=== PATIENT | female | born 1935 | race Caucasian/White ===

== ENCOUNTER 2024-07-17 22:02 | Inpatient (IN) | payer MEDICARE, BC ==
[~2024-07-17] VITALS: Ht 157.5 cm; Wt 64.0 kg
[2024-07-17 22:30] VITALS: BP 142/72; TEMP 97.7; O2SAT 95
[2024-07-17] MEDS ORDERED: MELA5TAB20 PO (23:29)
[2024-07-17] MEDS ORDERED: HALO2TAB PO (23:29)
[2024-07-17] MEDS ORDERED: METO-356 PO (23:29)
[2024-07-17] MEDS ORDERED: SERT25TA PO (23:29)
[2024-07-17] MEDS ORDERED: LEVO50TA8 PO (23:29)
[2024-07-17] MEDS ORDERED: GABA300S PO (23:29)
[2024-07-17] MEDS ORDERED: QUET25TA PO (23:29)
[2024-07-17] MEDS ORDERED: HALO2TAB9 PO (23:29)
[2024-07-17] MEDS ORDERED: GABA300C PO ×2 (23:29)
[2024-07-17] MEDS ORDERED: MAGN200T5 PO (23:29)
[2024-07-17] MEDS ORDERED: AMLO10TA59 PO (23:29)
[2024-07-17] MEDS ORDERED: TRAZ-182 PO (23:29)
[2024-07-17] MEDS ORDERED: MIRT-121 PO (23:29)
[2024-07-17] MEDS ORDERED: LORAZEPAM 1 MG TABLET PO PRN ×2 (23:30)
[2024-07-17] MEDS ORDERED: ACETAMINOPHEN 325 MG TABLET PO PRN (23:30)
[2024-07-17] MEDS ORDERED: MAGNESIUM HYDROXIDE 30 ML LIQUID UDC PO PRN (23:30)
[2024-07-17] MEDS ORDERED: MAG HYDROX/AL HYDROX/SIMETH 30 ML LIQUID UDC PO PRN (23:30)
[2024-07-17] MEDS: BLOOD SUGAR DIAGNOSTIC 1 EACH STRIP VI ONE (23:30)
[2024-07-18] MEDS: ZOLPIDEM 5 MG TABLET PO PRN (01:33)
[2024-07-18 08:44] VITALS: BP 135/55; TEMP 98; O2SAT 94
[2024-07-18] MEDS ORDERED: ACET325T53 PO (08:47)
[2024-07-18] MEDS: SERTRALINE HCL 50 MG TABLET PO SCH (10:34)
[2024-07-18 15:51] VITALS: BP 155/59; TEMP 98; O2SAT 96
[2024-07-18] MEDS: METOPROLOL SUCCINATE XL 25 MG TAB.SR.24H PO SCH (18:16)
[2024-07-18] MEDS: GABAPENTIN 300 MG CAPSULE PO SCH (20:45)
[2024-07-18] MEDS: CLONAZEPAM 0.5 MG TABLET PO SCH (20:45)
[2024-07-18] MEDS: QUETIAPINE FUMARATE 25 MG TABLET PO SCH (20:45)
[2024-07-19] MEDS: HYDROXYZINE PAMOATE 25 MG CAPSULE PO PRN (06:29)
[2024-07-19] MEDS: LEVOTHYROXINE SODIUM 50 MCG TABLET PO SCH (06:29)
[2024-07-19 08:07] VITALS: BP 144/65; TEMP 98; O2SAT 94
[2024-07-19 08:20] LABS: BASOPHILS # (AUTO) 0.1 K/UL (0.0-0.2); BASOPHILS % (AUTO) 1.5 % (0.0-2.0); DIFFERENTIAL COMMENT 0; EOSINOPHILS # (AUTO) 0.4 K/uL (0.0-0.7); EOSINOPHILS % (AUTO) 4.8 % (0.0-7.0); HEMOGLOBIN 13.5 g/dL (10.9-14.3); LYMPHOCYTES # (AUTO) 1.5 K/uL (0.8-4.8); LYMPHOCYTES % (AUTO) 20.2 % (20.5-51.5); MEAN CORPUSCULAR HEMOGLOBIN 29.2 uug (24.7-32.8); MEAN CORPUSCULAR HGB CONC 34 g/dL (32.3-35.6); MEAN CORPUSCULAR VOLUME 86.6 fL (75.5-95.3); MONOCYTES # (AUTO) 0.5 K/uL (0.1-1.30); MONOCYTES % (AUTO) 6.1 % (0.0-11.0); NEUTROPHILS % (AUTO) 67.4 % (38.5-71.5); PLATELET COUNT (AUTO) 430 K/uL (179-408); RED BLOOD CELL COUNT(AUTO) 4.62 MIL/uL (3.63-4.92); RED CELL DISTRIBUTION WIDTH 18.1 % (12.3-17.7); WHITE BLOOD COUNT (AUTO) 7.5 K/uL (3.8-11.8)
[2024-07-19 08:36] LABS: THYROID STIMULATING HORMONE 5.939 mIU/mL (0.358-3.740)
[2024-07-19] MEDS: GABAPENTIN 300 MG CAPSULE PO SCH (08:48)
[2024-07-19] MEDS: AMLODIPINE 10 MG TABLET PO SCH (08:49)
[2024-07-19 08:50] LABS: ALANINE AMINOTRANSFERASE 15 U/L (14-59); ALBUMIN 3.4 g/dL (3.4-5.0); ALKALINE PHOSPHATASE 78 U/L (50-136); ASPARTATE AMINOTRANSFERASE 34 U/L (15-37); BILIRUBIN,TOTAL 0.5 mg/dL (0.2-1.0); CARBON DIOXIDE 25 mmol/L (21-32); CHLORIDE 102 mmol/L (98-107); CREATININE 1.3 mg/dL (0.6-1.3); GLUCOSE 90 mg/dL (74-106); MAGNESIUM 1.8 mg/dL (1.8-2.4); PHOSPHOROUS 3.7 mg/dL (2.5-4.9); POTASSIUM 4.1 mmol/L (3.5-5.1); SODIUM SERUM 139 mmol/L (136-145); TOTAL PROTEIN, SERUM 6.7 g/dL (6.4-8.2); UREA NITROGEN, BLOOD 15 mg/dL (7-18)
[2024-07-19 15:52] VITALS: BP 180/79; TEMP 98; O2SAT 96
[2024-07-19 20:00] VITALS: BP 157/64; TEMP 97.6; O2SAT 92
[2024-07-20 08:42] VITALS: BP 125/71; TEMP 98; O2SAT 96
[2024-07-20 15:26] VITALS: BP 143/71; TEMP 98; O2SAT 98
[2024-07-20 20:00] VITALS: BP 159/68; TEMP 98.1; O2SAT 95
[2024-07-20] MEDS: hydrALAZINE HCL 25 MG TABLET PO PRN (20:41)
[2024-07-21 08:18] VITALS: BP 123/66; TEMP 98.5; O2SAT 96
[2024-07-21 16:50] VITALS: BP 123/66; TEMP 97.6; O2SAT 98
[2024-07-21 20:00] VITALS: BP 126/65; TEMP 97.8; O2SAT 96
[2024-07-22 08:14] VITALS: BP 133/71; TEMP 98.5; O2SAT 98
[2024-07-22] MEDS: ENSURE ENLIVE (VAN) 240 ML LIQUID PO SCH (16:33)
[2024-07-22 20:09] VITALS: BP 142/72; TEMP 98.1; O2SAT 97
[2024-07-24] MEDS: ZOLPIDEM 5 MG TABLET PO PRN (00:56)
[2024-07-24 07:54] VITALS: BP 150/62; TEMP 98.2; O2SAT 96
[2024-07-24 15:06] VITALS: BP 135/54; TEMP 98; O2SAT 94
[2024-07-25 08:16] VITALS: BP 124/55; TEMP 98.2; O2SAT 98
[2024-07-25 15:27] VITALS: BP 137/49; TEMP 98; O2SAT 98
[2024-07-25 20:00] VITALS: BP 120/56; TEMP 97.9; O2SAT 95
[2024-07-26 08:00] VITALS: BP 120/54; TEMP 98.2; O2SAT 75
[2024-07-26 08:20] VITALS: BP 120/54
[2024-07-26] MEDS ORDERED: GABA300C PO ×2 (10:21)
[2024-07-26] MEDS ORDERED: LEVO50TA8 PO (10:21)
[2024-07-26] MEDS ORDERED: ACET325T53 PO (10:21)
[2024-07-26] MEDS ORDERED: AMLO10TA59 PO (10:21)
[2024-07-26] MEDS ORDERED: METO-356 PO (10:21)
== END 2024-07-26 15:30 | disposition home or self-care (01) | DRG 885 ==
LOC: GPS 22:35
PROVIDERS: ADMIT Psychiatry & Neurology Psychiatry; ATTEND Internal Medicine
DX: F33.3 Major depressive disorder, recurrent, severe with psychotic symptoms (principal); N18.9 Chronic kidney disease, unspecified; F03.92 Unspecified dementia, unspecified severity, with psychotic disturbance; F03.93 Unspecified dementia, unspecified severity, with mood disturbance; F03.94 Unspecified dementia, unspecified severity, with anxiety; F41.9 Anxiety disorder, unspecified; E03.9 Hypothyroidism, unspecified; I12.9 Hypertensive chronic kidney disease with stage 1 through stage 4 chronic kidney disease, or unspecified chronic kidney disease; D75.839 Thrombocytosis, unspecified; G62.9 Polyneuropathy, unspecified; E66.9 Obesity, unspecified; M15.9 Polyosteoarthritis, unspecified; N26.1 Atrophy of kidney (terminal); Z87.440 Personal history of urinary (tract) infections; Z88.2 Allergy status to sulfonamides; Z88.0 Allergy status to penicillin; Z88.5 Allergy status to narcotic agent
CPT/HCPCS: 36415; 83735; 84100; 84443; 85025